=== PATIENT | female | born 1940 | race Caucasian/White ===

== ENCOUNTER → 2023-10-11 15:21 | Outpatient (REF) | payer MEDICARE, OTHER, SELFPAY | LOC: HWWDC 15:21 | PROVIDERS: ATTENDING PHYSICIAN Surgery; FAMILY PHYSICIAN Nurse Practitioner Family | DX: Z12.31 Encounter for screening mammogram for malignant neoplasm of breast (principal) | CPT/HCPCS: 77063; 77067 ==

== ENCOUNTER 2023-12-27 18:40 | Emergency (ER) | payer MEDICARE, OTHER, SELFPAY ==
[2023-12-27 18:43] VITALS: BP 160/87; BMI 19.5
--- NOTE | 2023-12-27 22:19 | ED.MUSCINJ ---
HPI-Injury
General
Chief Complaint: Extremity Pain (non-traumatic)
Source: patient
Time Seen by Provider: 12/27/23 22:04
Nursing documentation reviewed up to this point in time: agreed with
Travel History
Have you had any contact with someone who has COVID-19?: No
Do you have any symptoms of coronavirus? Fever > 100 degrees, chills, cough, shortness of breath, sore throat, loss of taste or smell, muscle aches, or headache?: No
History of Present Illness-Injury
Initial Injury comments:
83-year-old female with right knee pain and swelling for the last 48 hours. Denies any injury. States that the pain has been progressively worsening and the knee has been swelling. Denies fever, though has been feeling warm, chills, nausea or
vomiting. Reports no chest pain or shortness of breath.
Past History
Past History
ED Past Medical History: GERD and Hypothyroidism
ED Past Surgical History: Gynecological and Other
Social History
Tobacco: Former smoker
Alcohol: None
Musculoskeletal Injury Exam
Musculoskeletal Injury Exam
Right Knee:
Pain with Movement?: Mild
Tender to palpation?: None
Soft tissue swelling?: Moderate
External deformity and angulation?: None
Joint effusion?: Moderate
Contusion?: None
Hematoma-local bleeding into tissue?: None
Strain- Sprain- Tear (Connective tissue injury)?: None
Normal distal neurovascular exam?: Yes
Phy Exam
General Physical Exam
General Presentation: well appearing and mild distress
General age: appears stated age
General Skin: warm and dry
General Habitus: elderly
General Mental: alert
Pulmonary Exam
Pulmonary Exam: no respiratory distress
Neurological Exam
Neurological Exam: alert and oriented x3
Musculoskeletal Exam
Musculoskeletal Exam: full ROM and neuro vasc intact
Skin Exam
Skin Exam: normal color and warm/dry
Psychiatric Exam
Psychiatric Exam: normal mood/affect
Injury Course
Orders/Labs/Results
Orders:
Orders
12/27/23 18:42
Knee, Right 4 or More Views [CR Knee- Right 4 Or More View*] Urgent
Comment:
Reason For Exam: pain swelling x 48 hours
12/27/23 22:31
Body Fluid Cell Count Urgent
What is the Body Fluid: r knee aspiration
Date Specimen was Collected: 12/27/23
Time Specimen was Collected: 22:57
Body Fluid Crystals Routine
What is the Body Fluid: r knee aspiration
Date Specimen was Collected: 12/27/23
Time Specimen was Collected: 22:57
Gram Stain Routine
ANGELITO Source: Joint
Specimen Description:
Date Specimen was Collected: 12/27/23
Time Specimen was Collected: 22:57
Comment: r knee aspiration
12/27/23 22:32
Anaerobic Culture Routine
ANGELITO Source: Joint
Specimen Description:
Date Specimen was Collected: 12/27/23
Time Specimen was Collected: 22:57
Comment: Cultures & Sensitivity
Fluid Culture with Gram Stain Routine
ANGELITO Source: Joint Fluid
Specimen Description:
Date Specimen was Collected: 12/27/23
Time Specimen was Collected: 22:57
Comment: Cultures & Sensitivity
12/27/23 22:37
Complete Blood Count/With Diff Urgent
Comprehensive Metabolic Panel Urgent
Sed Rate [Erythrocyte Sed Rate] Urgent
Abnormal Lab Results
12/27/23
22:37
RBC 3.08 L 10^6/uL
(4.20-5.40)
Hgb 11.7 L g/dL
(12.0-16.0)
Hct 32.3 L %
(37.0-47.0)
MCV 104.9 H fL
(81.0-99.0)
MCH 38.0 H pg
(27.0-31.0)
Plt Count 126 L 10^3/uL
(130-400)
MPV 11.2 H fL
(7.4-10.4)
Sodium 134 L mmol/L
(135-145)
12/27/23 22:37
12/27/23 22:37
Procedures
Incision/Drainage/Joint Aspiration
Right Knee:
Anethesia: 1% Lidocaine
Preparation: cleaned with Hibiclens
Type of procedure: aspiration
Description of abscess: greater than 3cm
How much fluid was obtained?: number in mls (25)
Fluid description: clear and cloudy
*Critical Care Note
Total Time (30-74mins, 75-104mins- exclusive of procedures): Not Applicable
Update Note
Update Note:
Joint fluid sent for analysis
ED Attending Note
-
Portions of this chart may have been created with voice recognition software.� Occasional wrong word or��sound alike� substitutions may have occurred due to the inherent limitations of voice recognition software.
Discharge Plan
Departure
Patient Disposition: Home (Routine Discharge)
Date of Disposition: 12/27/23
Time of Disposition: 23:20
Patient with high blood pressure during this ER visit?: Yes
Condition: Good
Discharge Problem:
Effusion of knee joint right
Instructions: Swollen Joints (DC), BLOOD PRESSURE
Prescriptions:
New
acetaminophen-codeine 300-30 mg tablet
1 tab PO Q6H PRN (Reason: Pain) Qty: 7 0RF
No Action
levothyroxine 88 MCG tablet
88 mcg PO DAILY
multivitamin 1 EACH tablet
1 tab PO DAILY
Rx Instructions:
03/14/2023, patient stopped taking temporarily while taking cephalexin
ibuprofen 200 MG tablet
400 mg PO BID
cholecalciferol (vitamin D3) [Vitamin D3] 1,000 UNIT capsule
1 cap PO NOON
biotin 1,000 MCG tablet,chewable
2,000 mcg PO NOON
cephalexin 500 mg tablet
500 mg PO QID 10 Days Qty: 40 0RF
Rx Instructions:
03/15/2023, prescription that was supposed to knot picker cloth on 03/12/2023 was not and leona has been using only prescription from 01/16/2023, patient takes 500 mg tabs QID for 10 days
rosuvastatin [Crestor] 5 mg Tablet
5 mg PO HS
doxycycline monohydrate 100 mg capsule
100 mg PO BID 7 Days Qty: 14 0RF
acetaminophen-codeine 300-15 mg tablet
1 tab PO Q6H PRN (Reason: Pain) Qty: 12 0RF
Referrals:
Chong Monterroso CRNP [Family Provider] -
Michael Reaves MD [Active] - As needed
Activity Restrictions/Additional Instructions:
It was a pleasure meeting you and taking part in your care. We hope for your continued healing and wellness.
Please read discharge instructions in their entirety. However, they are for general education and may not describe your exact diagnosis at discharge. Information on your ER visit and medical conditions were discussed with you along with appropriate
follow up information...
If indicated, please take your medications as instructed and indicated on discharge paperwork.
Please schedule a follow up appointment as directed. Call to schedule an appointment
Please return to the emergency department with ANY change in, persisting, or worsening of symptoms. If any of your symptoms do not improve, or persist, or become more severe within 6-12 hours, please return to the emergency department for further
care.
Please return to the emergency department if you develop a headache, neck pain/stiffness, fever greater than 100.4F, chest pain, shortness of breath, persistent nausea, vomiting, slurred speech, difficulty walking, numbness/tingling, weakness, signs
of infection or any other symptoms that are worrisome to you.
If you have any questions or concerns please do not hesitate to call the Hospital at or E-mail me directly at [email or web address]
Interventions
Interventions:
*Risk Screen - Suicide Last Done: 12/27/23 18:43
*Neglect/Abuse Screening Last Done: 12/27/23 18:43
ED- Fall Risk Assessment Last Done: 12/27/23 18:43
ED-Skin Assessment Last Done: 12/27/23 22:27
ED-Peripheral Vascular Assessment Last Done: 12/27/23 22:27
ED-Musculoskeletal Assessment Last Done: 12/27/23 22:27
Discharge Date and Time
Print Language: AMHARIC
[2023-12-27 22:52] LABS: % Basophils 0.6 % (0-2); % Eosinophils 2.2 % (0-6); % Immature Granulocytes 0.3 % (0-0.5); % Lymphocytes 8.4 % (20.5-51.1); % Monocytes 21.7 % (1.7-9.3); % Neutrophils 66.8 % (42.2-75.2); Absolute Eosinophils 0.1 10^3/uL (0-0.7); Absolute Lymphocytes 0.5 10^3/uL (1.2-3.4); Absolute Monocytes 1.4 10^3/uL (0.1-0.6); Absolute Neutrophils 4.2 10^3/uL (1.4-6.5); Hematocrit 32.3 % (37.0-47.0); Hemoglobin 11.7 g/dL (12.0-16.0); Mean Corp Hgb Conc. 36.2 g/dL (33.0-37.0); Mean Corpuscular Volume 104.9 fL (81.0-99.0); Mean Platelet Volume 11.2 fL (7.4-10.4); Nucleated Red Blood Cells % 0 %; Platelet Count 126 10^3/uL (130-400); Red Blood Cell Count 3.08 10^6/uL (4.20-5.40); Red Cell Dist. Width 13.3 % (11.5-14.5); White Blood Cell Count 6.3 10^3/uL (4.8-10.8)
[2023-12-27 22:56] LABS: ALT (SGPT) 24 U/L (0-35); AST (SGOT) 29 U/L (14-36); Albumin 3.8 g/dl (3.5-5.0); Alkaline Phosphatase 54 U/L (38-126); Blood Urea Nitrogen 17 mg/dl (7-17); Calcium 9.1 mg/dl (8.4-10.2); Carbon Dioxide 26 mmol/L (22-30); Chloride 105 mmol/L (98-107); Estimated Creatinine Clearance 52 ml/min; Glucose 99 mg/dl (70-99); Potassium 4.1 mmol/L (3.5-5.1); Sodium 134 mmol/L (135-145); Total Bilirubin 0.9 mg/dl (0.2-1.3); Total Protein 6.4 g/dl (6.3-8.2); eGFR > 60.00
[2023-12-27 23:23] VITALS: BP 148/90
[2023-12-27 23:27] LABS: Erythrocyte Sed Rate 46 mm/hour (0-20)
== END 2023-12-27 23:25 | disposition home or self-care (01) ==
LOC: EMR 18:40
PROVIDERS: EMERGENCY PHYSICIAN Student in an Organized Health Care Education/Training Program; FAMILY PHYSICIAN Nurse Practitioner Family
DX: M25.461 Effusion, right knee (principal); R03.0 Elevated blood-pressure reading, without diagnosis of hypertension; Z87.891 Personal history of nicotine dependence
CPT/HCPCS: 99284; 10060; 73564; 80053; 85025; 85652; 87015; 87070; 87075; 87205; 89051; 89060

== ENCOUNTER → 2024-03-11 14:05 | Outpatient (REF) | payer MEDICARE, OTHER, SELFPAY | LOC: HWRAD 14:05 | PROVIDERS: ATTENDING PHYSICIAN Internal Medicine; FAMILY PHYSICIAN Nurse Practitioner Family | DX: R59.0 Localized enlarged lymph nodes (principal) | CPT/HCPCS: 76536 ==

== ENCOUNTER → 2024-03-21 16:36 | Outpatient (REF) | payer MEDICARE, OTHER, SELFPAY | LOC: PAVMRI 16:36 | PROVIDERS: ATTENDING PHYSICIAN Internal Medicine; FAMILY PHYSICIAN Nurse Practitioner Family | DX: R10.84 Generalized abdominal pain (principal); R63.4 Abnormal weight loss | CPT/HCPCS: 74181 ==

== ENCOUNTER → 2024-08-14 14:01 | Outpatient (REF) | payer MEDICARE, OTHER, SELFPAY | LOC: HWRAD 14:01 | PROVIDERS: ATTENDING PHYSICIAN Nurse Practitioner Family | DX: M79.604 Pain in right leg (principal); M54.6 Pain in thoracic spine | CPT/HCPCS: 72072; 73590; 73610 ==

== ENCOUNTER 2025-02-24 10:04 | Emergency (ER) | payer MEDICARE, OTHER, SELFPAY ==
[2025-02-24 10:07] VITALS: BP 165/98
--- NOTE | 2025-02-24 12:11 | ED.GENMED ---
History of Present Illness
General
Chief Complaint: Back Pain
Source: patient
Exam Limitations: none
Time Seen by Provider: 02/24/25 11:12
Nursing documentation reviewed up to this point in time: agreed with
History of Present Illness
History of Present Illness:
84 yo female w h/o hypothyroid, HLD, presents for lower back pain and abdominal discomfort. She reports that she woke up one morning last week with pain on the left lower back, below her waist, which has since progressed and sometimes radiates
across her back and to the right side. The patient notes that standing or sitting exacerbates the pain, while lying down provides relief. She describes her abdomen as feeling as if it is 'pulling in,' accompanied by intermittent abdominal
'stiffness' and a sense of pressure.
The abdominal symptom has been present for 'a long time' and has been gradually worsening. The patient has a documented weight loss of 23 pounds over the past three years.
The patient has experienced challenges with bowel movements, feeling constipated lately, despite soft stools in the past few days. She had a BM this a.m. She denies nausea; however, she occasionally feels frequent urination, particularly at night.
She mentions a known inguinal hernia that has not been surgically addressed due to other health issues arising two years ago. She has not had any recent trouble with her hernia.
The patient has history of low back pain, compression fx T 12 but states this pain feels different. Denies fever/n/v/d
Past History
Past History
ED Past Medical History: GERD and Hypothyroidism
ED Past Surgical History: Gynecological and Other
Social History
Tobacco: Former smoker
Alcohol: None
Review of Systems
Review of Systems
Allergies reviewed?: Yes
All Other Systems: ROS reviewed and negative except as documented in HPI and ROS
Constitutional: Denies fever
Respiratory: Denies trouble breathing
Cardiac: Denies chest pain
ABD/GI: Denies abdominal pain, nausea, vomiting, diarrhea, constipated or anorexia
: Reports dark urine; Denies dysuria, frequency, incontinence or difficulty voiding
Musculoskeletal: Reports back pain (Intermittent pain, sometimes it is across the lower back, sometimes it is only on the left, sometimes is only on the right)
Skin: Reports no symptoms
Neurological: Denies dizzy, headache, weakness or numbness
Phy Exam
Physical Exam
Physical Exam:
GENERAL: No acute distress. A&Ox3.
CONSTITUTIONAL: Afebrile.
EYES: clear, conjunctivae normal
ENMT: moist mucus membranes, Pharynx nl
RESPIRATORY: Regular respirations, nonlabored, lungs clear.
CARDIOVASCULAR: Regular rate and rhythm, no murmurs, no rubs.
GI: Soft, nontender, normal BS
MUSCULOSKELETAL: Moves with ease. Well perfused.
SKIN: Warm, dry, pink
PSYCH: Normal mood and affect. Well kept, interactive and appropriate
NEUROLOGIC: Awake, alert and oriented. No focal neurological deficits
Course
Orders/Labs/Results
Orders:
Orders
02/24/25 11:46
US Abdominal Aorta Urgent
Reason For Exam: low back pain, brother with AAA rupture
02/24/25 12:41
Urinalysis Reflex To Culture Urgent
Date Specimen was Collected: 02/24/25
Time Specimen was Collected: 12:41
Urine Microscopic Reflex Cult Urgent
02/24/25 12:47
Complete Blood Count/With Diff Urgent
Comprehensive Metabolic Panel Urgent
Thyroid profile [TSH Reflex To Free T4] Urgent
Abnormal Lab Results
02/24/25 02/24/25
12:41 12:47
RBC 3.36 L 10^6/uL
(4.20-5.40)
Hct 35.7 L %
(37.0-47.0)
MCV 106.3 H fL
(81.0-99.0)
MCH 37.2 H pg
(27.0-31.0)
MPV 10.9 H fL
(7.4-10.4)
Absolute Lymphs (auto) 0.6 L 10^3/uL
(1.2-3.4)
Absolute Monos (auto) 0.7 H 10^3/uL
(0.1-0.6)
Absolute Eos (auto) 1.1 H 10^3/uL
(0-0.7)
Lymphocytes % 10.2 L %
(20.5-51.1)
Monocytes % 13.8 H %
(1.7-9.3)
Eosinophils % 20.3 H %
(0-6)
Carbon Dioxide 31 H mmol/L
(22-30)
BUN 18 H mg/dl
(7-17)
Ur Occult Blood Reflex 1+ A
(Negative)
Urine RBC 3-6 A /HPF
(0-2)
Urine Albumin (Reflex) 2+ A
(Neg - Trace)
02/24/25 12:47
02/24/25 12:47
Vital Signs
Initial and Last Documented VS:
Initial Vital Signs
Temp Pulse Resp BP Pulse Ox
98.4 F 82 16 165/98 98
02/24/25 10:07 02/24/25 10:07 02/24/25 10:07 02/24/25 10:07 02/24/25 10:07
Last Documented Vital Signs
Temp Pulse Resp BP Pulse Ox
98.4 F 85 18 170/95 99
02/24/25 10:07 02/24/25 14:00 02/24/25 14:00 02/24/25 14:00 02/24/25 14:00
MDM/Problems Addressed
MDM/Problems Addressed:
84 yo female w h/o hypothyroid, HLD, presents for lower back pain and abdominal discomfort. She reports that she woke up one morning last week with pain on the left lower back, below her waist, which has since progressed and sometimes radiates
across her back and to the right side. The patient notes that standing or sitting exacerbates the pain, while lying down provides relief. She describes her abdomen as feeling as if it is 'pulling in,' accompanied by intermittent abdominal
'stiffness' and a sense of pressure.
The abdominal symptom has been present for 'a long time' and has been gradually worsening. The patient has a documented weight loss of 23 pounds over the past three years.
The patient has experienced challenges with bowel movements, feeling constipated lately, despite soft stools in the past few days. She had a BM this a.m. She denies nausea; however, she occasionally feels frequent urination, particularly at night.
She mentions a known inguinal hernia that has not been surgically addressed due to other health issues arising two years ago. She has not had any recent trouble with her hernia.
The patient has history of low back pain, compression fx T 12 but states this pain feels different. Denies fever/n/v/d
Afebrile, NAD
Records reviewed, previous CT, US and MRI of abdomen all showing no aortic aneurysm.
Pt insists on getting US of aorta as she has a list of testing her new PCP ordered prior to her first visit there.
1:30 p.m.
CBC: No clinically significant abnormality
CMP: No clinically significant abnormality
UA negative aortic ultrasound radiology report reviewed:
IMPRESSION:
1. 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
2. No significant change compared to prior ultrasound.
Pt is expressing that she cannot take the pain and is requesting something for the pain. She is very calm, soft spoken, in no distress, moving around off and on stretcher, ambulating to bathroom, no significant limited ROM of spine.
Went though all pain medication options
States Ibuprofen is not helping, for past back pain states she's tried Tramadol, Tylenol, refuses rx for steroids, does not want narcotics, does not want Gabapentin.
Initially she asked if there is a doctor here who could recommend something for the pain.
She states she's had Tylenol w Codeine in the past that has helped and is asking for that. Rx sent to her Pharmacy for this.
Offered several times to have one of our doctors to see her and several times she states that's not necessary.
Given copies of all reports, labs.
Pt ambulated out with normal gait at discharge.
*Pulse Oximetry
SaO2: 98
Oxygen Mode of Delivery: Room air
Patient hypoxic: not evaluated
*Critical Care Note
Total Time (30-74mins, 75-104mins- exclusive of procedures): Not Applicable
ED Attending Note
-
Portions of this chart may have been created with voice recognition software.� Occasional wrong word or��sound alike� substitutions may have occurred due to the inherent limitations of voice recognition software.
Discharge Plan
Departure
Patient Disposition: Home (Routine Discharge)
Date of Disposition: 02/24/25
Time of Disposition: 13:38
Patient with high blood pressure during this ER visit?: No
Condition: Good
Discharge Problem:
Low back pain
Instructions: Low Back Pain (DC)
Prescriptions:
New
acetaminophen-codeine 300-30 mg tablet
1 tab PO BID PRN (Reason: Pain) Qty: 10 0RF
No Action
levothyroxine 88 MCG tablet
88 mcg PO DAILY
multivitamin 1 EACH tablet
1 tab PO DAILY
Rx Instructions:
03/14/2023, patient stopped taking temporarily while taking cephalexin
ibuprofen 200 MG tablet
400 mg PO BID
cholecalciferol (vitamin D3) [Vitamin D3] 1,000 UNIT capsule
1 cap PO NOON
biotin 1,000 MCG tablet,chewable
2,000 mcg PO NOON
cephalexin 500 mg tablet
500 mg PO QID 10 Days Qty: 40 0RF
Rx Instructions:
03/15/2023, prescription that was supposed to orange picker on 03/12/2023 was not and leona has been using only prescription from 01/16/2023, patient takes 500 mg tabs QID for 10 days
rosuvastatin [Crestor] 5 mg Tablet
5 mg PO HS
doxycycline monohydrate 100 mg capsule
100 mg PO BID 7 Days Qty: 14 0RF
acetaminophen-codeine 300-15 mg tablet
1 tab PO Q6H PRN (Reason: Pain) Qty: 12 0RF
acetaminophen-codeine 300-30 mg tablet
1 tab PO Q6H PRN (Reason: Pain) Qty: 7 0RF
Referrals:
Your New PCP [Other] - Keep scheduled appt
UNKNOWN - PT DOES,NOT KNOW [Family Provider]
Activity Restrictions/Additional Instructions:
As we discussed, your workup here today shows nothing worrisome.
This is most likely musculoskeletal back pain, avoid any activity that aggravates the pain
Tylenol or ibuprofen as needed for pain.
I sent a prescription to your pharmacy for Tylenol with codeine to use if needed
Interventions
Interventions:
*Risk Screen - Suicide Last Done: 02/24/25 10:07
*General Assessment Last Done: 02/24/25 11:10
*Neglect/Abuse Screening Last Done: 02/24/25 10:07
*ED- Fall Risk Assessment Last Done: 02/24/25 11:10
*ED COVID-19 Vaccine History Last Done: 02/24/25 11:10
*Nursing Disposition Last Done: 02/24/25 14:00
ED-Musculoskeletal Assessment Last Done: 02/24/25 11:10
Discharge Date and Time
Discharge Date/Time: 02/24/25 14:00
Print Language: ESTONIAN
[2025-02-24 12:50] LABS: Urine Character Clear (Clear)
[2025-02-24 13:10] LABS: ALT (SGPT) 30 U/L (0-35); AST (SGOT) 34 U/L (14-36); Albumin 4.3 g/dl (3.5-5.0); Alkaline Phosphatase 67 U/L (38-126); Blood Urea Nitrogen 18 mg/dl (7-17); Calcium 9.3 mg/dl (8.4-10.2); Carbon Dioxide 31 mmol/L (22-30); Chloride 106 mmol/L (98-107); Glucose 87 mg/dl (70-99); Potassium 4.0 mmol/L (3.5-5.1); Sodium 140 mmol/L (135-145); Total Protein 6.9 g/dl (6.3-8.2); eGFR > 60.00
[2025-02-24 13:11] LABS: Hematocrit 35.7 % (37.0-47.0); Hemoglobin 12.5 g/dL (12.0-16.0); Mean Corp Hgb Conc. 35.0 g/dL (33.0-37.0); Mean Corpuscular Volume 106.3 fL (81.0-99.0); Nucleated Red Blood Cells % 0 %; Platelet Count 162 10^3/uL (130-400); Red Cell Dist. Width 13.3 % (11.5-14.5)
[2025-02-24 14:00] VITALS: BP 170/95
[2025-02-24 14:03] LABS: Urine Squamous Cell 0-2 /LPF (Few); Urine White Cell 0-2 /HPF (0-5)
== END 2025-02-24 14:00 | disposition home or self-care (01) ==
LOC: EMR 10:04
PROVIDERS: Registered Nurse; EMERGENCY PHYSICIAN Emergency Medicine
DX: M54.50 Low back pain, unspecified (principal); E03.9 Hypothyroidism, unspecified; E78.00 Pure hypercholesterolemia, unspecified; K21.9 Gastro-esophageal reflux disease without esophagitis; Z87.891 Personal history of nicotine dependence
CPT/HCPCS: 99284; 76770; 80053; 81003; 81015; 84443; 85025

== ENCOUNTER → 2025-04-22 09:57 | Outpatient (REF) | payer MEDICARE, OTHER, SELFPAY | LOC: WDC 09:57 | PROVIDERS: ATTENDING PHYSICIAN Internal Medicine | DX: N63.32 Unspecified lump in axillary tail of the left breast (principal); N63.20 Unspecified lump in the left breast, unspecified quadrant | CPT/HCPCS: 76642; 77062; 77066 ==